=== PATIENT | male | born 1955 ===

== ENCOUNTER 2024-02-20 13:36 | Inpatient (IN) | payer BC, MEDICARE ==
[2024-02-20] MEDS ORDERED: Morphine 2 MG/ML VIAL ONE ×2 (14:48→17:25)
[2024-02-20] MEDS ORDERED: Ondansetron PF 4 MG/2 ML Vial ONE (14:48)
[2024-02-20 16:22] LABS: #Basophils 0.03 10x3/uL (0.0-0.2); #Eosinphils Less than 0.03 10x3/uL (0.0-0.7); %Basophils 0.3 % (0.0-1.0); %Eosinophils 0.2 % (0.0-10.0); %Lymphocytes 4.3 % (21.0-51.0); %Monocytes 5.8 % (0.0-10.0); %Neutrophils 88.7 % (42.0-75.0); Hematocrit 37.6 % (42.0-52.0); Hemoglobin 12.9 g/dL (14.0-18.0); Mean Corpuscular HGB CONC 34.3 g/dL (32.0-36.0); Mean Corpuscular Hemoglobin 33.9 pg (27.0-31.0); Mean Corpuscular Volume 98.7 fL (78.0-98.0); Mean Platelet Volume 9.6 fL (7.4-10.4); Platelet Count 140 10x3/uL (130-400); RBC Distribution Width 12.6 % (11.5-14.5); Red Blood Cell (RBC) Count 3.81 mill/uL (4.70-6.10)
[2024-02-20 16:33] LABS: INR-International Normal Ratio 1.1; Prothrombin Time 14.2 sec (12.0-14.7)
[2024-02-20 16:34] LABS: PTT 27.9 sec (22.9-36.1)
[2024-02-20 16:40] LABS: ALT (SGPT) 17 U/L (8-55); AST (SGOT) 22 U/L (5-34); Albumin 3.8 g/dL (3.4-4.8); Alkaline Phosphatase 47 U/L (40-110); Anion Gap 12 mmol/L (10-20); BUN (Urea Nitrogen) 25 mg/dL (8.4-25.7); Bilirubin, Total 1.2 mg/dL (0.2-1.2); Calc. Creatinine Clearance 0 mL/min (70-130); Calcium 8.9 mg/dL (7.8-10.44); Carbon Dioxide 24 mmol/L (23-31); Chloride 110 mmol/L (98-107); Estimated GFR 98; Glucose 142 mg/dL (80-115); Potassium 3.7 mmol/L (3.5-5.1); Protein, Total 5.8 g/dL (5.8-8.1); Sodium 142 mmol/L (136-145)
[2024-02-20] MEDS ORDERED: Glucagon 1 MG/ML KIT IM PRN (18:19)
[2024-02-20] MEDS ORDERED: Ondansetron ODT 4 MG TAB PO PRN (18:19)
[2024-02-20] MEDS ORDERED: Dextrose 50% Abboject 50 ML SYRINGE SLOW IVP PRN (18:19)
[2024-02-20] MEDS ORDERED: Dextrose 5% in Water 1,000 ML IV PRN (18:19)
[2024-02-20] MEDS ORDERED: Metoprolol Tartrate 5 MG (5 mL) VIAL ONE (18:56)
[2024-02-20 21:15] VITALS: BMI 21.7
[2024-02-20] MEDS: HYDROcodone/Acetaminophen 5/325 mg Tablet PO PRN (21:31)
[2024-02-20] MEDS: Lactated Ringer's 1,000 ML IV SCH (21:31)
[2024-02-20] MEDS: hydrALAZINE 20 MG/ML VIAL SLOW IVP PRN (21:32)
[2024-02-20] MEDS: Famotidine 20 MG TAB PO SCH (22:15)
[2024-02-20] MEDS: traMADol HCl 50 MG TAB PO PRN (23:38)
[2024-02-20] MEDS: Acetaminophen 325 MG TAB PO PRN (23:38)
[2024-02-20] MEDS: Methocarbamol 500 MG TAB PO PRN (23:39)
[2024-02-21 05:51] LABS: #Basophils Less than 0.03 10x3/uL (0.0-0.2); #Eosinphils Less than 0.03 10x3/uL (0.0-0.7); %Basophils 0.1 % (0.0-1.0); %Lymphocytes 5.1 % (21.0-51.0); %Monocytes 10.1 % (0.0-10.0); %Neutrophils 84.2 % (42.0-75.0); Hemoglobin 13.1 g/dL (14.0-18.0); Mean Corpuscular HGB CONC 34.5 g/dL (32.0-36.0); Mean Corpuscular Hemoglobin 32.8 pg (27.0-31.0); Mean Corpuscular Volume 95.2 fL (78.0-98.0); Mean Platelet Volume 10.1 fL (7.4-10.4); Platelet Count 141 10x3/uL (130-400); RBC Distribution Width 12.8 % (11.5-14.5); Red Blood Cell (RBC) Count 3.99 mill/uL (4.70-6.10)
[2024-02-21 06:16] LABS: Anion Gap 13 mmol/L (10-20); BUN (Urea Nitrogen) 20 mg/dL (8.4-25.7); Calc. Creatinine Clearance 105 mL/min (70-130); Calcium 8.8 mg/dL (7.8-10.44); Carbon Dioxide 22 mmol/L (23-31); Chloride 106 mmol/L (98-107); Estimated GFR 101; Glucose 115 mg/dL (80-115); Potassium 3.4 mmol/L (3.5-5.1); Sodium 138 mmol/L (136-145)
[2024-02-21] MEDS: Enoxaparin 40 MG (0.4 mL) SYRINGE SC SCH (08:09)
[2024-02-21] MEDS ORDERED: Carbidopa/Levodopa CR 50-200 mg Tablet PO SCH (09:00)
[2024-02-21] MEDS: QUEtiapine 25 MG TAB PO SCH (09:32)
[2024-02-21] MEDS: Losartan 25 MG TAB PO SCH (09:32)
[2024-02-21] MEDS: Mirabegron ER 25 MG ER.TAB PO SCH (09:32)
[2024-02-21] MEDS: Pantoprazole DR 40 MG TAB PO SCH (09:32)
[2024-02-21 10:09] VITALS: BMI 21.7
[2024-02-21] MEDS: Carbidopa/Levodopa 25-100 mg Tablet PO SCH (14:58)
[2024-02-21 17:58] LABS: Bacteria/HPF None Seen HPF (None Seen); Bilirubin Negative (Negative); Blood, Urine Negative (Negative); CAUTI Indications for Culture Pelvic or flank pain; Clarity Clear (Clear); Glucose, Urine (Dipstick) Normal (Negative); Ketone, Urine Negative (Negative); Leukocyte Negative Leu/uL (Negative); Nitrite Negative (Negative); Protein, Urine (Dipstick) Negative (Neg-Trace); RBC/HPF 0-3 HPF (0-3); Specific Gravity, Urine 1.006 (1.002-1.036); Squamous Epithelial None Seen HPF (0-3); Urobilinogen Normal mg/dL (Less than 2); WBC/HPF 0-3 HPF (0-3)
[2024-02-21 18:18] LABS: Urine Culture Reflex No No
[2024-02-21] MEDS: Atorvastatin Calcium 20 MG TAB PO SCH (20:05)
[2024-02-21] MEDS: Doxazosin 2 MG TAB PO SCH (20:06)
[2024-02-21] MEDS ORDERED: Doxazosin 2 MG TAB PO SCH (21:00)
[2024-02-22] MEDS: Ondansetron PF 4 MG/2 ML Vial IVP PRN (08:52)
[2024-02-22] MEDS ORDERED: Clindamycin/D5W 900 MG in Premix 1 BAG IVPB SCH (11:30)
[2024-02-22] MEDS ORDERED: Clindamycin/D5W 900 mg/50 ml Premix Bag ONE (11:50)
[2024-02-22] MEDS ORDERED: Bupivacaine PF 0.5% 30 ML VIAL ONE (12:03)
[2024-02-22] MEDS ORDERED: EPINEPHrine 1 MG/ML VIAL ONE (12:03)
[2024-02-22] MEDS ORDERED: Lidocaine 1% PF 5 ML VIAL ONE (12:13)
[2024-02-22] MEDS ORDERED: PROPOFOL 20 ML ONE (12:13)
[2024-02-22] MEDS ORDERED: fentaNYL PF 100 MCG/2 ML SYRINGE ONE (12:29)
[2024-02-22] MEDS ORDERED: Dexamethasone 20 MG/5 ML VIAL ONE (12:29)
[2024-02-22] MEDS ORDERED: Ondansetron PF 4 MG/2 ML Vial ONE (12:29)
[2024-02-22] MEDS ORDERED: ePHEDrine Sulfate 50 MG/10 ML VIAL ONE (12:40)
[2024-02-22] MEDS ORDERED: PHENYLEPHRINE-NS 100 MCG/ML 10 ML SYRINGE ONE (12:43)
[2024-02-22] MEDS: Potassium Chloride 20 MEQ TAB PO SCH (16:20)
[2024-02-22] MEDS ORDERED: Morphine 4 MG/ML VIAL SLOW IVP PRN (16:26)
[2024-02-22] MEDS: Clindamycin/D5W 900 MG in Premix 1 BAG IVPB SCH (20:04)
[2024-02-22] MEDS: QUEtiapine 25 MG TAB PO SCH (20:05)
[2024-02-23 05:09] LABS: #Basophils Less than 0.03 10x3/uL (0.0-0.2); #Eosinphils Less than 0.03 10x3/uL (0.0-0.7); %Basophils 0.1 % (0.0-1.0); %Lymphocytes 2.9 % (21.0-51.0); %Monocytes 9.8 % (0.0-10.0); %Neutrophils 86.8 % (42.0-75.0); Hematocrit 38.9 % (42.0-52.0); Hemoglobin 13.4 g/dL (14.0-18.0); Mean Corpuscular HGB CONC 34.4 g/dL (32.0-36.0); Mean Corpuscular Hemoglobin 33.2 pg (27.0-31.0); Mean Corpuscular Volume 96.3 fL (78.0-98.0); Mean Platelet Volume 10.2 fL (7.4-10.4); Platelet Count 124 10x3/uL (130-400); RBC Distribution Width 12.5 % (11.5-14.5); Red Blood Cell (RBC) Count 4.04 mill/uL (4.70-6.10)
[2024-02-23 05:26] LABS: Anion Gap 15 mmol/L (10-20); BUN (Urea Nitrogen) 24 mg/dL (8.4-25.7); Calc. Creatinine Clearance 92 mL/min (70-130); Carbon Dioxide 20 mmol/L (23-31); Chloride 106 mmol/L (98-107); Estimated GFR 97; Glucose 118 mg/dL (80-115); Sodium 137 mmol/L (136-145)
[2024-02-23] MEDS: Enoxaparin 40 MG (0.4 mL) SYRINGE SC SCH (09:24)
[2024-02-23] MEDS: Ketorolac Tromethamine 30 MG (1 mL) VIAL IVP PRN (18:29)
[2024-02-24] MEDS: Acetaminophen 325 MG TAB PO SCH (15:35)
[2024-02-25] MEDS: Losartan 25 MG TAB PO SCH (09:03)
[2024-02-25] MEDS: Morphine 2 MG/ML VIAL SLOW IVP SCH (10:01)
[2024-02-25] MEDS: Acetaminophen/Codeine 30-300mg Tablet PO SCH (14:11)
[2024-02-26] MEDS: Ketorolac Tromethamine 30 MG (1 mL) VIAL IVP SCH ×2 (09:39→12:25)
[2024-02-26] MEDS: busPIRone HCl 5 MG TAB PO PRN (12:25)
[2024-02-26] MEDS: busPIRone HCl 5 MG TAB PO SCH (14:37)
[2024-02-27] MEDS: Ibuprofen 200 MG TAB PO PRN (16:09)
[2024-02-28] MEDS: Senokot S 8.6-50 MG TAB PO SCH (10:12)
[2024-02-28 12:19] VITALS: BP 132/99; TEMP 98.4
== END 2024-02-28 13:44 | DRG 511 ==
LOC: ERS 13:36 → 2NO 18:53 → OBSVTOIN 02-22 03:39 → SURG B 02-25 13:54 → SURG A 02-25 18:24
PROVIDERS: ADMIT Surgery; ATTEND Surgery
PROC: 0PSH04Z Reposition Right Radius with Internal Fixation Device, Open Approach (ICD-10-PCS; principal; 2024-02-22)
PROC: 3E033XZ Introduction of Vasopressor into Peripheral Vein, Percutaneous Approach (ICD-10-PCS; 2024-02-22)
DX: S52.501A Unspecified fracture of the lower end of right radius, initial encounter for closed fracture (principal); S32.591A Other specified fracture of right pubis, initial encounter for closed fracture; S52.601A Unspecified fracture of lower end of right ulna, initial encounter for closed fracture; R00.0 Tachycardia, unspecified; G31.83 Neurocognitive disorder with Lewy bodies; I10 Essential (primary) hypertension; F03.90 Unspecified dementia, unspecified severity, without behavioral disturbance, psychotic disturbance, mood disturbance, and anxiety; E78.5 Hyperlipidemia, unspecified; K27.9 Peptic ulcer, site unspecified, unspecified as acute or chronic, without hemorrhage or perforation; Z98.890 Other specified postprocedural states; Z88.0 Allergy status to penicillin
CPT/HCPCS: 36415; 36416; 70450; 71045; 72125; 72170; 80048; 80053; 81001; 85025; 85610; 85730; 96372; 96375; 97139; C1713; G0378; G0390; J0171; J0360; J0665; J1100; J1650; J1885; J2272; J2405; J2704; J3490; J7120